=== PATIENT | male | born 1990 | race Two or more races ===

== ENCOUNTER 2022-09-03 15:27 | Emergency (ER) | payer OTHER ==
[~2022-09-03] VITALS: Ht 195.6 cm; Wt 165.6 kg
[2022-09-03] MEDS ORDERED: ADVIL DUAL ACT1 EACH PO (19:21)
== END 2022-09-03 19:33 | disposition home or self-care (01) ==
LOC: ER 15:27
DX: F45.41 Pain disorder exclusively related to psychological factors (principal); Z88.0 Allergy status to penicillin

== ENCOUNTER 2023-05-20 17:26 | Emergency (ER) | payer OTHER ==
[~2023-05-20] VITALS: Ht 175.3 cm; Wt 117.9 kg
[~2023-05-20 17:26] MED LIST: ADVIL DUAL ACT1 EACH PO
[2023-05-20 19:29] LABS: HEMATOCRIT 46.2 % (39.0-48.0); HEMOGLOBIN 15.5 g/dL (13-16.00); MEAN CELL VOLUME 86.4 fL (80.0-100.00); MEAN CORPUSCULAR HEMOGLOBIN 28.9 pg (27.00-32.0); MEAN CORPUSCULAR HGB CONC 33.5 g/dl (32.0-36.0); PLATELET COUNT 202 K/uL (150-450); RED BLOOD COUNT 5.35 M/uL (4.00-6.00)
[2023-05-20 20:01] LABS: ALBUMIN 4.2 gm/dL (3.4-5.0); BILIRUBIN TOTAL 1.36 mg/dL (0.3-1.2); CALCIUM 9.6 mg/dL (8.5-10.1); CREATININE SERUM 0.96 mg/dL (0.70-1.30); FERRITIN 289.4 NG/ML (26-388); GFR 91.36; GLOBULINA 3.6 G/DL (2.4-3.5); POTASSIUM 4.08 mEq/L (3.5-5.1); TOTAL PROTEIN 7.8 gm/dL (6.4-8.2)
[2023-05-20] MEDS ORDERED: FAMOTIDINE/PF 20 MG/2 ML VIAL IV PUSH STA (20:39)
[2023-05-20] MEDS ORDERED: KETOROLAC TROMETHAMINE 30 MG VIAL IM STA (20:47)
[2023-05-20] MEDS ORDERED: KETOROLAC TROMETHAMINE 15 MG VIAL IV STA (20:51)
== END 2023-05-20 21:02 | disposition home or self-care (01) ==
LOC: ER 17:26
PROVIDERS: General Practice
DX: R53.1 Weakness (principal); Z20.822 Contact with and (suspected) exposure to COVID-19; Z88.0 Allergy status to penicillin

== ENCOUNTER 2023-09-15 14:00 | Emergency (ER) | payer OTHER ==
[~2023-09-15] VITALS: Ht 193 cm; Wt 113.4 kg
[2023-09-15] MEDS ORDERED: CEFTRIAXONE SODIUM 1,000 MG VIAL IM ONE (15:45)
[2023-09-15] MEDS ORDERED: TRIAMCINOLONE ACETONIDE 40 MG/ML VIAL IM ONE (15:45)
[2023-09-15] MEDS ORDERED: ZYRTEC10 MG PO (15:54)
[2023-09-15] MEDS ORDERED: FLONASE16 GM NASAL (15:54)
[2023-09-15] MEDS ORDERED: CLEOCIN HCL300 MG PO (15:54)
== END 2023-09-15 17:19 ==
LOC: ER 14:00
DX: J32.9 Chronic sinusitis, unspecified (principal); Z88.0 Allergy status to penicillin; Z87.09 Personal history of other diseases of the respiratory system